=== PATIENT | female | born 1965 | race Asian ===

== ENCOUNTER 2019-05-31 06:22 | Day surgery (SDC) | payer OTHER ==
[~2019-05-31] VITALS: Ht 152.4 cm; Wt 57.6 kg
[2019-05-31] MEDS ORDERED: fentaNYL 0.05 MG/ML VIAL ONE (07:43)
[2019-05-31] MEDS ORDERED: LIDOCAINE 2% 100 MG/5 ML UJET TP ONE (07:43)
[2019-05-31] MEDS ORDERED: fentaNYL 0.05 MG/ML VIAL IVP ONE (08:07)
== END 2019-05-31 08:54 | disposition home or self-care (01) ==
LOC: MDS 06:22 → MMU 06:24 → MDS 08:54
PROVIDERS: ATTEND Internal Medicine Gastroenterology
DX: Z12.11 Encounter for screening for malignant neoplasm of colon (principal); E11.9 Type 2 diabetes mellitus without complications; F17.210 Nicotine dependence, cigarettes, uncomplicated; Z88.8 Allergy status to other drugs, medicaments and biological substances; Z79.899 Other long term (current) drug therapy
CPT/HCPCS: 45378; J3010

== ENCOUNTER 2022-11-21 23:29 | Emergency (ER) | payer SELFPAY ==
--- NOTE | 2022-11-22 00:16 | NUR ---
received call from admitting that patient left facilty no longer wishing [email or web address] receive care.
== END 2022-11-22 00:16 | disposition left against medical advice (07) ==
LOC: MED 23:29
DX: R06.02 Shortness of breath (principal); Z53.21 Procedure and treatment not carried out due to patient leaving prior to being seen by health care provider